=== PATIENT | male | born 1930 | race Caucasian/White ===

== ENCOUNTER 2018-11-29 08:06 | Inpatient (IN) ==
[2018-11-29] MEDS ORDERED: NS 1,000 ML IV PRN (08:14)
--- NOTE | 2018-11-29 08:16 | PROVIDER DOCUMENTATION ---
HPI-Neurological Disorder - General Chief Complaint: Stroke-Like Symptoms Stated Complaint: Stroke-like symptoms Time Seen by Provider: 11/29/18 08:14 Source: patient, family, EMS Allergies/Adverse Reactions: Patient Allergies Allergy/AdvReac Type Severity Reaction Status Date / Time No Known Allergies Allergy Verified 08/30/15 14:26 Home Medications: Home Medication List Medication Instructions Recorded Confirmed Last Taken Type Allopurinol 300 mg PO DAILY 08/30/15 11/29/18 11/28/18 History Aspirin 81 mg PO DAILY 08/30/15 11/29/18 11/28/18 History Esomeprazole Magnesium [Nexium] 20 mg PO DAILY 08/30/15 11/29/18 11/28/18 History Meloxicam 15 mg PO DAILY 08/30/15 11/29/18 11/28/18 History Moexipril HCl 7.5 mg PO BID 08/30/15 11/29/18 11/28/18 History Naproxen 375 mg PO DAILY 08/30/15 11/29/18 11/28/18 History Hydrocodone/APAP 10 mg/325 mg 1 each PO Q4H PRN PRN #30 tablet 09/01/15 11/29/18 11/28/18 Rx [[place]-10] - History of Present Illness-Neuro Nature of Presenting Problem: BROUGHT BY EMS. PER DAUGHTER - SPOKE WITH PATIENT ON PHONE THIS MORNING SPEECH WAS SLURRED AND PATIENT CONFUSED. NOW RESOLVED AND BACK TO BASELINE. PATIENT COMPLAINED OF WEAKNESS EARLIER, POSSIBLE FEVER. DENIES CHEST PAIN, COUGH, OR SOB. NO ABD PAIN /N/V/D. NO DYSURIA OR HEMATURIA. UNABLE TO SAY WHETHER WEAKNESS WAS FOCAL BUT NOW DENIES WEAKNESS Onset/Duration: reports: this morning Timing: reports: improving Context: reports: impaired speech. denies: head injury, seizure activity Character of Altered Mental Status: reports: confused Any recent trauma/injury?: reports: none Character of Deficits: reports: impaired speech Cognitive Baseline: alert, oriented x3 Associated Symptoms: denies: short of breath, chest pain Review of Systems - Adult - REVIEW OF SYSTEMS - ADULT Constitutional: reports: fever Cardiovascular: reports: no symptoms reported Respiratory: reports: no symptoms reported Gastrointestinal: reports: no symptoms reported Genitourinary: reports: no symptoms reported Neurological: reports: see HPI All Other Systems: Reviewed and Negative Past History - Adult - PAST MEDICAL HISTORY-ADULT Review of Records: reports: Nursing Assessment Review, Medications Reviewed, Social history reviewed & non-contributory. Physical Exam- Neurological - Physical Exam-Neuro Initial Vital Signs Reviewed: Yes General Appearance: appears well, alert, no apparent distress Eye Exam: bilateral eye: normal inspection, PERRL, EOMI HENMT: normocephalic/atraumatic, moist mucous membranes Head Injury: no evidence of injury Neck: non-tender, full range of motion, supple. negative: lymphadenopathy, meni ngismus Respiratory: lungs clear, normal breath sounds, no respiratory distress Cardiovascular: normal peripheral pulses, regular rate, rhythm Abdominal Exam: normal bowel sounds, non tender, soft, no organomegaly, no pulsatile mass Extremity: normal range of motion, non-tender timber feller Exam: normal hearing, normal speech, PERRL Motor/Sensory: no motor deficit, no sensory deficit, no pronator drift Integumentary: warm/dry. negative: rash Psych/Mental Status: normal mood/affect - [place] Coma Scale Best Eye Response: (4) open spontaneously Best Verbal Response: (5) oriented Best Motor Response: (6) obeys commands Progress - PLAN OF CARE/RESULTS Progress/Plan/Lab Results: Vital Signs - 8 hr 11/29/18 08:15 11/29/18 08:37 11/29/18 08:38 Temperature 98.1 F Pulse Rate 84 94 H 94 H Respiratory Rate 26 H 25 H 18 Blood Pressure 123/69 123/69 O2 Sat by Pulse Oximetry 94 L 95 11/29/18 08:40 11/29/18 08:50 11/29/18 09:00 Temperature Pulse Rate 92 H 90 90 Respiratory Rate 35 H 20 30 H Blood Pressure O2 Sat by Pulse Oximetry 95 94 L 11/29/18 09:10 11/29/18 09:20 11/29/18 09:30 Temperature Pulse Rate 82 83 87 Respiratory Rate 26 H 26 H 25 H Blood Pressure O2 Sat by Pulse Oximetry 92 L 93 L 93 L 11/29/18 09:40 11/29/18 09:50 Temperature Pulse Rate 88 88 Respiratory Rate 29 H 24 Blood Pressure O2 Sat by Pulse Oximetry 92 L 93 L Laboratory Results - last 24 hr 11/29/18 11/29/18 11/29/18 08:45 08:45 08:45 WBC 21.48 H RBC 3.83 L Hgb 12.9 L Hct 39.0 L MCV 101.8 H MCH 33.7 H MCHC 33.1 RDW Std Deviation 15.1 H Plt Count 161 MPV 12.8 H Immature Gran % (Auto) 0.5 Neut % (Auto) 92.6 H Lymph % (Auto) 2.0 L [place] % (Auto) 4.8 Eos % (Auto) 0.0 Baso % (Auto) 0.1 Immature Gran # (Auto) 0.10 H Neut # (Auto) 19.89 H Lymph # (Auto) 0.43 L [place] # (Auto) 1.04 H Eos # (Auto) 0.00 Baso # (Auto) 0.02 PT 13.9 INR 1.06 PTT (Actin FS) 27.1 Sodium 143 Potassium 4.1 Chloride 103 Carbon Dioxide 27 Anion Gap 13 BUN 31 H Creatinine 1.3 H Estimated GFR/1.73 m2 52 BUN/Creatinine Ratio 24 Glucose 161 H POC Glucose Calculated Osmolality 295 Calcium 8.6 L Total Bilirubin 4.42 H AST 300 H ALT 247 H Alkaline Phosphatase 427 H Troponin T Total Protein 5.5 L Albumin 3.5 Globulin 2.0 Albumin/Globulin Ratio 1.8 Urine Source Urine Color Urine Turbidity Urine pH Ur Specific [place] Urine Protein Ur Glucose (Stick) Ur Ketones (Stick) Urine Blood Urine Nitrite Urine Bilirubin Urobilinogen Dipstick Urine Leukocytes Urine WBC (Auto) Urine RBC (Auto) U Epithel Cells (Auto) Urine Bacteria (Auto) 11/29/18 11/29/18 11/29/18 08:45 08:46 10:00 WBC RBC Hgb Hct MCV MCH MCHC RDW Std Deviation Plt Count MPV Immature Gran % (Auto) Neut % (Auto) Lymph % (Auto) [place] % (Auto) Eos % (Auto) Baso % (Auto) Immature Gran # (Auto) Neut # (Auto) Lymph # (Auto) [place] # (Auto) Eos # (Auto) Baso # (Auto) PT INR PTT (Actin FS) Sodium Potassium Chloride Carbon Dioxide Anion Gap BUN Creatinine Estimated GFR/1.73 m2 BUN/Creatinine Ratio Glucose POC Glucose 156 H Calculated Osmolality Calcium Total Bilirubin AST ALT Alkaline Phosphatase Troponin T < 0.010 Total Protein Albumin Globulin Albumin/Globulin Ratio Urine Source CLEAN CATCH Urine Color YELLOW Urine Turbidity CLEAR Urine pH 5.5 Ur Specific [place] 1.013 Urine Protein TRACE A Ur Glucose (Stick) NEGATIVE Ur Ketones (Stick) NEGATIVE Urine Blood NEGATIVE Urine Nitrite NEGATIVE Urine Bilirubin SMALL A Urobilinogen Dipstick 2 A Urine Leukocytes NEGATIVE Urine WBC (Auto) <10 Urine RBC (Auto) <10 U Epithel Cells (Auto) <10 Urine Bacteria (Auto) NEGATIVE Orders Category Date Time Status Cardiac Monitoring DIRECTED Care 11/29/18 08:14 Active Finger Stick Blood Sugar (ED) DIRECTED Care 11/29/18 08:14 Completed Misc. NRSG Communication Order DIRECTED Care 11/29/18 08:14 Active Saline Loc NOW Care 11/29/18 08:14 Active CHEST-PORTABLE [RAD] Stat Exams 11/29/18 08:[address] ABDOMEN/PELVIS W/O CONTRAST [CT] Stat Exams 11/29/18 09:[address] HEAD W/O CONTRAST [CT] Stat Exams 11/29/18 08:08 Completed BLOOD CULTURE [BLDCUL] Stat Lab 11/29/18 10:49 Received CBC WITH ELECTRONIC DIFF [HEME] Stat Lab 11/29/18 08:45 Completed COMPREHENSIVE METABOLIC PANEL [CHEM] Stat Lab 11/29/18 08:45 Completed LACTATE, PLASMA [CHEM] Stat Lab 11/29/18 10:49 Received PROTIME WITH INR [COAG] Stat Lab 11/29/18 08:45 Completed PTT [COAG] Stat Lab 11/29/18 08:45 Completed TROPONIN T Stat Lab 11/29/18 08:45 Completed URINALYSIS W/POSS RFLX CULT [URINALYSIS] Stat Lab 11/29/18 10:00 Completed URINE DRUG SCREEN Stat Lab 11/29/18 10:00 Received 0.9% Sodium Chloride Inj [Ns] 1,000 ml Med 11/29/18 08:14 Active IV 125 mls/hr Aspirin Med 11/29/18 10:53 Discontinued 325 mg PO NOW ONE Piperacillin/Tazobactam [Zosyn] 4.5 gm Med 11/29/18 10:53 Active 0.9% Sodium Chloride Inj [Ns] 100 ml IV NOW EKG [EKG] Stat Ther 11/29/18 08:14 Draft Result Diagrams: 11/29/18 08:45 11/29/18 08:45 - REASSESSMENT Reassessment #1 Time Reassessed: 10:55 Status: unchanged (REMAINS ALERT. NORMAL MENTAL STATUS. NO NEURO DEFICITS. NOT CANDIDATE FOR TPA DUE TO RESOLVING SYMPTOMS. DISCUSSED WITH HOSPITALIST WILL ADMIT) - EKG 1 Time of EKG reading by physician:: 09:40 EKG Read and Signed by:: Wilber Rodriguez Rate: 88 Rhythm: NSR [place]: normal QRS: normal HI Interval: normal ST Wave: non-specific ST changes Departure - Departure Date of Disposition Decision: 11/29/18 Time of Disposition Decision: 10:54 DIAGNOSIS: TIA (transient ischemic attack), Cholelithiasis, Leukocytosis Disposition: ADMITTED INPATIENT 09 Certified Medical Emergency: Emergent Condition: Fair Referrals and Follow-Ups: Dylan Lopes MD [Primary Care Provider] - - Critical Care Note This patient required my direct & personal management of CC.: No Attestation - Physician/ TAMARA Attestation Patient care was provided by Advanced Practice Provider:: No The physician spent face to face time with patient:: Yes Advanced Practice Provider documentation review:: Supervising physician onsite and consulted in the evaluation and care of this patient. The physician did have a face to face encounter with the patient.
--- NOTE | 2018-11-29 08:40 | Diag Imaging Result Doc PS360 ---
EXAM: CT HEAD W/O CONTRAST 11/29/2018 HISTORY: stroke like symptoms TECHNIQUE: This exam was performed using automated exposure control, adjustment of mA or kV according to patient size, and/or use of iterative reconstruction technique. COMMENT: There are no previous studies available for comparison. There are calcifications in the globus pallidus. There is no evidence of mass effect, bleed, or abnormal extra-axial fluid collection. There is a mucous retention cyst in the right maxillary sinus. There is an effusion in the left mastoid air cells and there may be some fluid in the middle ear cavity. The calvarium appears to be intact. IMPRESSION: No evidence of acute intracranial disease. Left mastoid effusion and otitis media. Electronically signed by Orlando Medeiros 11/29/2018 8:38 AM
--- NOTE | 2018-11-29 08:42 | Diag Imaging Result Doc PS360 ---
EXAM: CHEST-PORTABLE 11/29/2018 HISTORY: stroke like symptoms TECHNIQUE: AP portable at 0831 COMMENT: There is apparent subsegmental atelectasis in the left base which was possibly not present on 08/30/2015. Otherwise the appearance the chest has not changed significantly. IMPRESSION: Minimal left basilar atelectasis. Electronically signed by Orlando Medeiros 11/29/2018 8:39 AM
[2018-11-29 09:19] LABS: BASO# 0.02 X1000 (0.0-0.2); BASO% 0.1 % (0.0-0.8); HEMOGLOBIN 12.9 g/dL (14.0-18.0); IMM GRAN% 0.5 % (0.0-0.5); LYMPH# 0.43 X1000 (1.2-3.4); MCH 33.7 PG (27-31); MCHC 33.1 g/dL (33-37); MCV 101.8 FL (81-99); MONO# 1.04 X1000 (0.11-0.59); MONO% 4.8 % (1.7-9.3); MPV 12.8 FL (7.4-10.4); NEUT# 19.89 X1000 (1.4-6.5); NEUT% 92.6 % (42.2-75.2); PLT 161 X1000 (130-400); RBC 3.83 XMIL (4.7-6.1); RDW 15.1 % (11.5-14.5); WBC 21.48 X1000 (4.8-10.8)
[2018-11-29 09:26] LABS: INR 1.06; PROTIME 13.9 Seconds (11.0-16.0); PTT 27.1 Seconds (22.3-41.8)
[2018-11-29 09:40] LABS: ALB/GLOB RATIO 1.8; ALBUMIN 3.5 g/dL (3.5-5.0); CALCIUM 8.6 mg/dL (8.8-10.2); CREATININE 1.3 mg/dL (0.7-1.2); POTASSIUM 4.1 mmol/L (3.5-5.1); TOTAL BILIRUBIN 4.42 mg/dL (0.20-1.00); TOTAL PROTEIN 5.5 g/dL (6.3-8.3)
[2018-11-29 10:26] LABS: URINE SOURCE CLEAN CATCH
--- NOTE | 2018-11-29 10:30 | Diag Imaging Result Doc PS360 ---
EXAM: CT ABDOMEN/PELVIS W/O CONTRAST 11/29/2018 HISTORY: FLANK PAIN TECHNIQUE: This exam was performed using automated exposure control, adjustment of mA or kV according to patient size, and/or use of iterative reconstruction technique. COMMENT: The current study is compared with the previous examination of 08/25/2015. There are platelike opacities present in both lung bases which largely were present on the previous study and are likely related to fibrotic scars. There are granulomata in the liver. There is an apparent stone in the gallbladder measuring in excess of 2.3 cm. This was also demonstrated the time the previous examination. At the time of the previous study, there were several other stones which are no longer identifiable, and the gallbladder itself is not as distended as it was previously. The pancreas is grossly normal in appearance considering the lack of intravenous contrast. The kidneys are slightly atrophic in appearance and there are some exophytic cysts present in the right kidney. There is no evidence of hydronephrosis. There is no evidence of ureterolithiasis. There is no evidence of bowel obstruction. There is stool and gas in the colon. There is no evidence of appendicitis. There is a fat-containing umbilical hernia. There is diverticulosis in the sigmoid colon without evidence of diverticulitis. There is no evidence of free fluid. The urinary bladder is not distended. There is severe degenerative facet disease at L5-S1 with apparent spinal stenosis. There has been laminectomy and fusion at the L4-5 level. IMPRESSION: No evidence of urolithiasis or obstructive uropathy. Cholelithiasis. The possibility of previous partial cholecystectomy cannot be excluded. The possibility of cholecystitis cannot be excluded. Electronically signed by Orlando Medeiros 11/29/2018 10:28 AM
[2018-11-29 10:33] LABS: BILIRUBIN URINE SMALL (NEGATIVE); BLOOD URINE NEGATIVE (NEGATIVE); COLOR YELLOW; GLUCOSE URINE NEGATIVE (NEGATIVE); KETONE URINE NEGATIVE (NEGATIVE); LEUKOCYTES URINE NEGATIVE (NEGATIVE); NITRITE URINE NEGATIVE (NEGATIVE); PH URINE 5.5; PROTEIN URINE TRACE mg/dL (NEGATIVE); SP GRAVITY URINE 1.013; TURBIDITY URINE CLEAR (CLEAR); UROBILINOGEN URINE 2 mg/dL (NORMAL)
[2018-11-29 10:35] LABS: UR EPITHELIAL CELLS <10 /HPF (<10); URINE BACTERIA NEGATIVE /HPF; URINE RBC <10 /HPF (<10); URINE WBC <10 /HPF (<10)
--- NOTE | 2018-11-29 10:39 | EKG Report ---
Test Performed on : 11/29/2018 08:37:49 AM Test Reason : Stroke like symptoms Blood Pressure : / mmHG Vent. Rate : 088 BPM Atrial Rate : 088 BPM P-R Int : 174 ms QRS Dur : 072 ms QT Int : 350 ms P-R-T Axes : 056 037 012 degrees QTc Int : 423 ms Sinus rhythm. with marked sinus arrhythmia. Low voltage QRS Borderline ECG When compared with ECG of 30-AUG-2015 15:13, No significant change was found Unconfirmed Result
[2018-11-29] MEDS ORDERED: ASPIRIN PO ONE (10:53)
[2018-11-29] MEDS ORDERED: ZOSYN 4.5 GM in NS 100 ML IV ONE (10:53)
[2018-11-29 10:56] LABS: UR AMPHETAMINES QUAL NONE DETECTED (NONE DETECT); UR BARBITUATES QUAL NONE DETECTED (NONE DETECT); UR BENZODIAZEPIN QUAL NONE DETECTED (NONE DETECT); UR OPIATES QUAL NONE DETECTED (NONE DETECT)
[2018-11-29 10:57] LABS: UR CANNABINOIDS QUAL NONE DETECTED (NONE DETECT); UR COCAINE QUAL NONE DETECTED (NONE DETECT); UR METHADONE QUAL NONE DETECTED (NONE DETECT); UR OXYCODONE QUAL NONE DETECTED (NONE DETECT); UR PCP QUAL NONE DETECTED (NONE DETECT)
--- NOTE | 2018-11-29 12:30 | Diag Imaging Result Doc PS360 ---
EXAM: US GB < RUQ (LIMITED) 11/29/2018 HISTORY: GALLSTONES TECHNIQUE: Right upper quadrant ultrasound COMMENT: The study is suboptimal due to the patient's body habitus. The aorta and inferior vena cava are not well demonstrated. The liver is grossly normal in appearance. The right kidney appears somewhat atrophic with thinning of the cortex but no evidence of hydronephrosis. The pancreatic head is normal in appearance remainder is obscured. There is very poor detail seen in the liver. There is antegrade flow in the portal vein. The gallbladder is not well demonstrated but there is some shadowing from the gallbladder fossa which is probably related to the stone demonstrated on recent CT. There is no evidence of biliary dilatation the common bile duct measuring less than 7 mm. No abnormal fluid collections are demonstrated. IMPRESSION: Suboptimal study. Probable cholelithiasis. Electronically signed by Orlando Medeiros 11/29/2018 12:28 PM
[2018-11-29] MEDS ORDERED: ZOFRAN IV PRN (13:19)
[2018-11-29] MEDS ORDERED: MORPHINE IV PRN (13:20)
[2018-11-29] MEDS ORDERED: NORCO-10 PO PRN (13:22)
[2018-11-29] MEDS ORDERED: ZOSYN 3.375 GM in NS 50 ML IV SCH (13:30)
[2018-11-29] MEDS ORDERED: VANCOMYCIN IV PER PHARMACY MISC SCH (13:30)
--- NOTE | 2018-11-29 14:09 | HISTORY AND PHYSICAL ---
HISTORY OF PRESENT ILLNESS: Mr. Hassan, who is an 88-year-old white gentleman, says he had a chill, he got up, and he got confused. He could not even walk inside the house, and went back to the bed, then after that, decided to come to the emergency. He thought that he had a TIA. However, when he came to the emergency room, we found out that he had elevated liver enzymes and gallbladder stones. Mr. Hassan tells me that 4 to 5 years ago, he was seen by Dr. Jones, who opened up his abdomen, and then did not operate on him, and sent him to [facility], where [facility] also decided that he did not need surgery. Other details of this are not well known to me. PAST MEDICAL/SURGICAL HISTORY: History of one back surgery. 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 He is a known case of hypertension, severe degenerative arthritis, and history of gout. REVIEW OF SYSTEMS: He has intermittent abdominal pain. He gets dizzy at times. He is weak. Cardiopulmonary is negative for chest pain or shortness of breath. , endocrine, breasts negative. Neurological unremarkable, except for some dizziness and slight mental confusion that happened this morning. Other details were noncontributory. SOCIAL HISTORY: He is a nonsmoker; smoked endorse 60 years ago, but since then he has not smoked. He does not drink. ALLERGIES: He is not allergic to any medications. PHYSICAL EXAMINATION: GENERAL: The patient is alert. There is no evidence of lymphadenopathy, thyroid enlargement, pedal edema, calf tenderness, anemia, cyanosis, or clubbing. VITAL SIGNS: Temperature normal, pulse 80 per minute, respiratory rate 16, blood pressure 167/70. HEENT: Head normocephalic. Pupils PERRLA. Fundus examination not done. ENT: Unremarkable, except for surgery on outer ears for cancer. He has been followed by Dr. Greenberg for inner ear problems. NECK: Supple. JVP normal. EXTREMITIES: Pedal pulses well felt. BREASTS: Normal. CHEST: Normal inspection. LUNGS: Clear on auscultation. HEART: PMI in the normal position. Heart sounds are normal. No murmur, gallop, or rub noted. ABDOMEN: Nondistended. No guarding, rigidity, free fluid masses, or organomegaly. Bowel sounds normal. RECTAL: Deferred. CENTRAL NERVOUS SYSTEM: Higher functions normal. Cranial nerves normal. Motor and sensory system examination unremarkable. Deep tendon reflexes normal. Plantars downgoing. Skull and spine examination normal for age. No cerebellar signs or signs of meningeal irritation. Locomotor exam painful knee movements. SKIN: Unremarkable. IMPRESSION: The patient has a history of some mental confusion earlier this morning. However, he has cholelithiasis. He has elevated white count, elevated liver enzymes, definitely some evidence of obstructive jaundice, as well as cholecystitis. We will try to treat him with antibiotics, and get a surgical opinion at a later date. cc: Dylan Lopes MD MTDD
[2018-11-29] MEDS ORDERED: VANCOMYCIN 2,250 MG in NS 500 ML IV ONE (15:00)
[2018-11-29] MEDS: SODIUM CHLORIDE 0.9% INJ SCH (16:11)
[2018-11-29] MEDS: PROTONIX IV SCH (16:11)
--- NOTE | 2018-11-29 16:15 | GENERAL SURGERY CONSULTATION ---
DATE: 11/29/2018 HISTORY OF PRESENT ILLNESS: Mr. Hassan is a pleasant, 88-year-old, gentleman who this morning became confused and weak. He was brought to the emergency room by his daughters, because when they contacted him he was confused. They had trouble getting into his house to get to him. He does live alone. He does admit to having a chill recently. He, however, does not complain about his abdomen. He denies any abdominal pain. 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 He has had a history of a back surgery. He has had a stent placed in his heart, and to his knowledge his heart is functioning well. He has history of arthritis and gout as well. The history of his gallbladder dates back to August 2015 at which time he was operated on by Dr. Jones. He underwent 1st laparoscopy and then laparotomy. 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 The gallbladder was very hard. Both he and Dr. Wong agreed that resection would have been potentially fatal. Because of the fact that it probably represented carcinoma, they aborted further attempts and closed. He was sent to [facility] subsequently, and no intervention was done there. Mr. Hassan has now gone for 3 years and now presents with these symptoms. His liver enzymes are elevated with his total bilirubin 4.4, AST 300, ALT 247, and alkaline phosphatase 427. His white count is now 21,500. His CT scan does show multiple large gallstones with some surrounding inflammation, and it shows a subcutaneous fluid collection or abdominal wall fluid collection which was noted previously 3 years ago as well. MEDICATIONS: At home include naproxen as needed, meloxicam 15 mg daily, Nexium 20 mg daily, aspirin 81 mg daily, allopurinol 3 mg daily, moexipril 7.5 mg b.i.d., and [place] 10 as needed for pain. Allergies: He has no known drug allergies. SOCIAL HISTORY: He is apparently . He lives alone. He is a nonsmoker. He does not drink alcohol or use illicit drugs. FAMILY HISTORY: Not known. REVIEW OF SYSTEMS: As noted above. PHYSICAL EXAMINATION: Vital Signs: On examination, he is afebrile. Heart rate 69, respiratory 16, blood pressure 140/59. General: He has very fair skin and freckles. HEENT: He has partial loss of his left ear pinna. Neck: No cervical adenopathy is palpated. No axillary adenopathy is palpated. Lungs: He has bilateral breath sounds. Heart: Regular rate and rhythm. Abdomen: Soft. Amazingly not tender. No fluctuance and no erythema is noted. He has pedal pulses. He does have 1+ peripheral edema. He is awake, alert and oriented. DIAGNOSTIC DATA: Laboratory data is as noted above. CT scan is as noted above. ASSESSMENT: Acute and chronic cholecystitis that is now causing him leukocytosis and abnormal liver function tests. Based on his previous operation. This is going to be socked in his liver and difficult to treat operatively. PLAN: The plan will be to keep him on antibiotics and see if we can normalize his numbers, that is his white count and his LFTs. If not, we will proceed or at least consider him for laparotomy with unroofing of the gallbladder and hopefully removal of stones and drainage of the gallbladder fossa if possible. I discussed the seriousness of the situation with his 3 daughters who are present, and they understand. cc: Chris Curry MD MTDD
[2018-11-29] MEDS: ZOSYN 3.375 GM in NS 50 ML IV SCH (18:59)
[2018-11-29] MEDS ORDERED: UNIVASC PO SCH (21:00)
[2018-11-30] MEDS: ZOSYN 3.375 GM in NS 50 ML IV SCH ×4 (00:32→18:11)
[2018-11-30] MEDS ORDERED: NORCO-10 PO PRN (06:45)
[2018-11-30 06:59] LABS: ALB/GLOB RATIO 1.4; ALBUMIN 3.1 g/dL (3.5-5.0); DIRECT BILIRUBIN 3.8 mg/dL (0.00-0.20); TOTAL BILIRUBIN 4.3 mg/dL (0.20-1.00); TOTAL PROTEIN 5.3 g/dL (6.3-8.3)
[2018-11-30 07:29] LABS: BASO# 0.01 X1000 (0.0-0.2); BASO% 0.1 % (0.0-0.8); EOS# 0.09 X1000 (0.0-0.7); EOS% 0.9 % (0.0-10.0); HEMATOCRIT 35.8 % (42.0-52.0); HEMOGLOBIN 11.9 g/dL (14.0-18.0); IMM GRAN# 0.03 X1000 (0.0-0.04); IMM GRAN% 0.3 % (0.0-0.5); LYMPH# 0.41 X1000 (1.2-3.4); MCH 33.6 PG (27-31); MCHC 33.2 g/dL (33-37); MCV 101.1 FL (81-99); MONO# 0.63 X1000 (0.11-0.59); MONO% 6.1 % (1.7-9.3); MPV 13.1 FL (7.4-10.4); NEUT% 88.6 % (42.2-75.2); PLT 138 X1000 (130-400); RBC 3.54 XMIL (4.7-6.1); RDW 15.3 % (11.5-14.5); WBC 10.27 X1000 (4.8-10.8)
[2018-11-30] MEDS ORDERED: LIPITOR PO SCH (09:00)
[2018-11-30] MEDS ORDERED: NON-FORMULARY MED (Esomeprazole Magnesium [Nexium] 20 MG) PO SCH (09:00)
[2018-11-30] MEDS: ZYLOPRIM PO SCH (09:19)
[2018-11-30] MEDS: IMDUR PO SCH (09:19)
[2018-11-30] MEDS: COREG PO SCH ×2 (09:19→21:37)
[2018-11-30] MEDS: LASIX PO SCH (09:19)
[2018-11-30] MEDS: NORVASC PO SCH (09:24)
[2018-11-30] MEDS: PLAVIX PO SCH (09:24)
[2018-11-30] MEDS: COZAAR PO SCH (09:24)
--- NOTE | 2018-11-30 09:34 | PROGRESS NOTE ---
DATE: 11/30/2018 SUBJECTIVE: Mr. Hassan is feeling much better. He has cholelithiasis with obstructive jaundice. His abdomen is soft and nontender. Vital signs are stable. He is afebrile. Lab data reveals a white count has come down from 21,000 to 10,000. INR was 1.06 and blood sugar was 156. His bilirubin continues to be around 4.3, and AST, ALT and alkaline phosphatase, all 3 enzymes are coming down some. Plasma lactate was 1.7. We are going to continue the current line of antibiotic therapy. He was seen by Dr. Curry yesterday. -4 cc: Dylan Lopes MD
[2018-11-30] MEDS ORDERED: MILK OF MAGNESIA PO ONE (12:04)
--- NOTE | 2018-11-30 12:30 | GENERAL SURGERY PROGRESS NOTE ---
DATE: 11/30/2018 SUBJECTIVE: Mr. Hassan feels better today. His T-max was 100.2 degrees, now he is afebrile with stable hemodynamics. He is taking some liquids satisfactorily. His white count is down to 10,000, hemoglobin 11.9, hematocrit 35.8. Total bilirubin is down to 4.3. AST down to 133, ALT down to 163, alkaline phosphatase down to 295. ASSESSMENT: He has clinically improved with antibiotic therapy. We will continue with conservative course for now and recheck his labs in the morning. He wants something for his bowels. cc: MD Dylan Ritchie MD
[2018-11-30] MEDS: SODIUM CHLORIDE 0.9% INJ SCH (12:59)
[2018-11-30] MEDS: PROTONIX IV SCH (12:59)
[2018-11-30] MEDS: VANCOMYCIN 1,700 MG in NS 250 ML IV SCH (15:37)
[2018-11-30] MEDS: LIPITOR PO SCH (21:37)
[2018-12-01] MEDS: ZOSYN 3.375 GM in NS 50 ML IV SCH ×4 (03:07→20:32)
[2018-12-01 06:05] LABS: BASO# 0.01 X1000 (0.0-0.2); BASO% 0.2 % (0.0-0.8); EOS# 0.13 X1000 (0.0-0.7); EOS% 2.2 % (0.0-10.0); HEMATOCRIT 34.7 % (42.0-52.0); HEMOGLOBIN 11.7 g/dL (14.0-18.0); LYMPH# 0.37 X1000 (1.2-3.4); LYMPH% 6.4 % (20.5-51.1); MCH 34.7 PG (27-31); MCHC 33.7 g/dL (33-37); MONO# 0.58 X1000 (0.11-0.59); MPV 13.3 FL (7.4-10.4); NEUT% 81.2 % (42.2-75.2); PLT 128 X1000 (130-400); RBC 3.37 XMIL (4.7-6.1); RDW 15.5 % (11.5-14.5); WBC 5.79 X1000 (4.8-10.8)
[2018-12-01 07:19] LABS: ALB/GLOB RATIO 1.1; ALBUMIN 2.8 g/dL (3.5-5.0); DIRECT BILIRUBIN 2.4 mg/dL (0.00-0.20); TOTAL BILIRUBIN 3.06 mg/dL (0.20-1.00); TOTAL PROTEIN 5.4 g/dL (6.3-8.3)
[2018-12-01] MEDS: COREG PO SCH ×2 (08:47→22:49)
[2018-12-01] MEDS: PLAVIX PO SCH (08:47)
[2018-12-01] MEDS: NORVASC PO SCH (08:47)
[2018-12-01] MEDS: LASIX PO SCH (08:47)
[2018-12-01] MEDS: IMDUR PO SCH (08:47)
[2018-12-01] MEDS: ZYLOPRIM PO SCH (08:47)
[2018-12-01] MEDS: COZAAR PO SCH (08:50)
[2018-12-01] MEDS ORDERED: DULCOLAX PR ONE (09:04)
[2018-12-01] MEDS ORDERED: MILK OF MAGNESIA PO PRN (09:05)
--- NOTE | 2018-12-01 09:49 | PROGRESS NOTE ---
DATE: 12/01/2018 SUBJECTIVE: Mr. Hassan has cholelithiasis. He has obstructive jaundice with elevated liver enzymes which are getting down. Bilirubin has come down some with direct hemoglobin around 2. This is definitely obstructive jaundice, and we will continue the IV antibiotics. He has evidence of cholecystitis. -5 cc: Dylan Lopes MD
--- NOTE | 2018-12-01 13:52 | GENERAL SURGERY PROGRESS NOTE ---
DATE: 12/01/2018 Mr. Hassan continues to feel fine. He denies any complaints. His abdomen is nontender. He is afebrile. His laboratory data reveals now a fall in his white count to 5000, his bilirubin is now down to 3.0, AST down to 99, ALT down to 137, alkaline phosphatase down to 267. He continues to complain of no bowel movement. ASSESSMENT: He continues to clinically improve with improvement in his liver function tests and white count. I think we should continue with conservative therapy as long as he continues to show progress. If at some point he stops improving then we can intervene operatively but for now with this continued improvement in his numbers I think we should continue conservative approach. He is in agreement. I have spoken with his daughters and they agree. cc: MD Dylan Ritchie MD
[2018-12-01] MEDS: MILK OF MAGNESIA PO SCH ×2 (14:06→22:49)
[2018-12-01] MEDS: PROTONIX IV SCH (14:08)
[2018-12-01] MEDS: LIPITOR PO SCH (20:33)
[2018-12-01] MEDS: VANCOMYCIN 1,700 MG in NS 250 ML IV SCH (21:19)
[2018-12-02] MEDS: ZOSYN 3.375 GM in NS 50 ML IV SCH ×4 (03:17→20:54)
[2018-12-02 06:41] LABS: ALB/GLOB RATIO 1.1; ALBUMIN 2.9 g/dL (3.5-5.0); DIRECT BILIRUBIN 1.7 mg/dL (0.00-0.20); TOTAL BILIRUBIN 2.5 mg/dL (0.20-1.00); TOTAL PROTEIN 5.5 g/dL (6.3-8.3)
--- NOTE | 2018-12-02 07:33 | GENERAL SURGERY PROGRESS NOTE ---
DATE: 12/02/2018 Mr. Hassan is afebrile with stable hemodynamics. His white count has come down to normal now. His bilirubin continues to fall, today it is down to 2.5. AST and ALT continue to fall. His alkaline phosphatase continues to come down. The plan will be to treat him nonoperatively if possible. If he can manage to normalize his LFTs or at least near normal without surgery, then I am content with that. Surgery would be difficult and may simply consist of removing stones and draining the gallbladder bed. So, we will continue with a conservative course for now. cc: MD Dylan Ritchie MD
[2018-12-02] MEDS: COZAAR PO SCH (09:01)
[2018-12-02] MEDS: LASIX PO SCH (09:01)
[2018-12-02] MEDS: PLAVIX PO SCH (09:01)
[2018-12-02] MEDS: IMDUR PO SCH (09:01)
[2018-12-02] MEDS: ZYLOPRIM PO SCH (09:01)
[2018-12-02] MEDS: COREG PO SCH ×2 (09:01→20:54)
[2018-12-02] MEDS: NORVASC PO SCH (09:01)
--- NOTE | 2018-12-02 09:47 | PROGRESS NOTE ---
DATE: 12/02/2018 Mr. Hassan is slowly improving. We are doing a liver profile on him. Total bilirubin has come down to 2.5, direct bilirubin 1.7. ALT, AST, and alkaline phosphatase are also coming down. He is being followed by Dr. Curry. We are continuing the IV antibiotics for cholecystitis. -0 cc: Dylan Lopes MD
[2018-12-02] MEDS: PROTONIX IV SCH (14:15)
[2018-12-02] MEDS: LIPITOR PO SCH (20:54)
[2018-12-02] MEDS: VANCOMYCIN 1,700 MG in NS 250 ML IV SCH (23:15)
[2018-12-03] MEDS: ZOSYN 3.375 GM in NS 50 ML IV SCH ×4 (02:09→20:26)
[2018-12-03 06:19] LABS: ALB/GLOB RATIO 1.3; ALBUMIN 3.1 g/dL (3.5-5.0); DIRECT BILIRUBIN 1.4 mg/dL (0.00-0.20); TOTAL BILIRUBIN 2.18 mg/dL (0.20-1.00); TOTAL PROTEIN 5.4 g/dL (6.3-8.3)
[2018-12-03] MEDS: NORVASC PO SCH (08:38)
[2018-12-03] MEDS: ZYLOPRIM PO SCH (08:39)
[2018-12-03] MEDS: LASIX PO SCH (08:39)
[2018-12-03] MEDS: COZAAR PO SCH (08:39)
[2018-12-03] MEDS: PLAVIX PO SCH (08:39)
[2018-12-03] MEDS: COREG PO SCH ×2 (08:39→20:27)
[2018-12-03] MEDS: IMDUR PO SCH (08:39)
--- NOTE | 2018-12-03 09:43 | PROGRESS NOTE ---
DATE: 12/03/2018 SUBJECTIVE: Mr. Hassan is doing better. His total bilirubin has come down from 2.5 to 2.18, AST down from 93 to 81, ALT and alkaline phosphatase also have come down some, so we are making progress as far as improvement in the liver function is concerned. He is getting the IV antibiotics. We will continue with the current management. -5 cc: Dylna Lopes MD
--- NOTE | 2018-12-03 10:45 | GENERAL SURGERY PROGRESS NOTE ---
DATE: 12/03/2018 TIME: 10:30 in the morning. SUBJECTIVE: Mr. Hassan is sitting up. He is doing well. He had breakfast. His total bilirubin has fallen to 2.8. AST has fallen to 81. ALT down to 121. Alkaline phosphatase down to 251. Clinically, he is doing well. I will be out of town. Surgical associates will be covering in my absence, but my recommendation would be to potentially let him go home by the weekend on antibiotics, and then follow up in the future with repeat of his LFTs to see what they bottom out at. cc: MD Dylan Ritchie MD
[2018-12-03] MEDS: PROTONIX IV SCH (14:07)
[2018-12-03] MEDS: LIPITOR PO SCH (20:26)
[2018-12-03] MEDS: VANCOMYCIN 1,700 MG in NS 250 ML IV SCH (22:08)
[2018-12-04] MEDS: ZOSYN 3.375 GM in NS 50 ML IV SCH ×3 (01:33→13:31)
[2018-12-04] MEDS: LASIX PO SCH (08:15)
[2018-12-04] MEDS: ZYLOPRIM PO SCH (08:15)
[2018-12-04] MEDS: COREG PO SCH (08:15)
[2018-12-04] MEDS: NORVASC PO SCH (08:15)
[2018-12-04] MEDS: IMDUR PO SCH (08:15)
[2018-12-04] MEDS: COZAAR PO SCH (08:15)
[2018-12-04] MEDS: PLAVIX PO SCH (08:15)
[2018-12-04 11:22] VITALS: BP 150/63
--- NOTE | 2018-12-04 12:19 | PROGRESS NOTE ---
DATE: 12/04/2018 Mr. Hassan is doing well. He was seen by Dr. Curry yesterday who suggested that he could go home any time. We will discharge him today as he is feeling better. Liver functions are getting better. Total bilirubin is 2.18, direct bilirubin is 1.4, AST 81, ALT 121, and alkaline phosphatase is 251. We will discharge him today. We will give him Levaquin 750 mg daily for 7 days. cc: Dylan Lopes MD
--- NOTE | 2018-12-04 13:13 | DISCHARGE SUMMARY ---
ADMISSION DATE: 11/29/2018 DISCHARGE DATE: 12/04/2018 Mr. Hassan, who is an 88-year-old white gentleman, was admitted after a fall. He passed out. However, CT scan was negative. His CT scan of the head was negative. He was found to have severe jaundice. Abdomen ultrasound as well as CT scan revealed cholelithiasis with possible cholecystitis. His CBC initially showed white count of 21.48, repeat white count was 5.79. His initial bilirubin was 4.42, AST 300, ALT 247 and alkaline phosphatase was 427, and final bilirubin is 2.18 with 121 of ALT, 251 of alkaline phosphatase and 81 of AST. He was treated with IV antibiotics, namely Zosyn and vancomycin, and he continued to improve. He wants to be discharged today. Dr. Curry has okayed for discharge and will send him home. Final diagnosis is acute cholecystitis, cholelithiasis. He will be seen in the office in about 10 days. We will repeat liver enzymes at that time. cc: Dylan Lopes MD
[2018-12-04] MEDS: PROTONIX IV SCH (13:15)
--- NOTE | 2018-12-09 21:01 | DISCHARGE SUMMARY ---
ADMISSION DATE: 11/29/2018 DISCHARGE DATE: 12/04/2018 DISCHARGE SUMMARY ADDENDUM: Mr. Hassan was admitted with severe cholecystitis. He had sepsis due to acute cholecystitis. cc: Dylan Lopes MD
== END 2018-12-04 14:07 | disposition home or self-care (01) | DRG 872 ==
LOC: SUPCPDRO → ED 08:06 → 4N 11:30
PROVIDERS: ADMIT Internal Medicine; ATTEND Internal Medicine